=== PATIENT | female | born 1960 | race Two or more races ===

== ENCOUNTER 2025-01-21 16:22 | Emergency (ER) | payer OTHER ==
[~2025-01-21] VITALS: Ht 162.6 cm; Wt 77.1 kg
[2025-01-21] MEDS ORDERED: CARVEDILOL ER40 MG PO (17:01)
[2025-01-21] MEDS ORDERED: METFORMIN HCL500 M3 PO (17:01)
[2025-01-21] MEDS ORDERED: JARDIANCE25 MG PO (17:02)
[2025-01-21] MEDS ORDERED: SYNTHROID50 MCG PO (17:02)
[2025-01-21] MEDS ORDERED: LOSARTAN-HCTZ1 EAC1 PO (17:02)
[2025-01-21] MEDS ORDERED: ATORVASTATIN CA40 MG PO (17:02)
[2025-01-21 17:03] VITALS: BP 163/89; O2SAT 100
[2025-01-21] MEDS ORDERED: NIFEDIPINE ER90 MG PO (17:03)
[2025-01-21 17:35] LABS: BASO % 0.5 % (0.1-1.2); EOS # 0.12 (0.04-0.54); EOS % 1.2 % (0.7-7.0); LYMPH # 3.11 (1.18-3.74); LYMPH % 31.1 % (19.3-53.1); MEAN PLATELET VOLUME 10.30 fl (9.4-12.4); MONO # 0.63 (0.24-0.82); MONO % 6.3 % (4.7-12.5); NEUT # 6.07 (1.56-6.13); NEUT % 60.7 % (34.0-71.1); RED CELL DISTRIBUTION WIDTH 14.0 % (11.6-14.4)
[2025-01-21 17:59] LABS: ALT/SGPT 34.0 U/L (12-78); AST/SGOT 32.0 U/L (15-37); BILIRUBIN TOTAL 0.21 mg/dL (0.3-1.2); BUN CREA RATIO 26.0 (7.0-25.0); CREATININE SERUM 1.35 mg/dL (0.55-1.02); GFR 39.73; GLOBULINA 4.9 G/DL (2.4-3.5); GLUCOSE FASTING 135.0 mg/dL (65-100); OSMOLALITY SERUM 291.0 MOSM/KG (275-295)
== END 2025-01-21 19:02 | disposition home or self-care (01) ==
LOC: ER 16:40
PROVIDERS: General Practice
DX: H54.61 Unqualified visual loss, right eye, normal vision left eye (principal); E03.8 Other specified hypothyroidism; I10 Essential (primary) hypertension; E11.9 Type 2 diabetes mellitus without complications; Z79.84 Long term (current) use of oral hypoglycemic drugs